=== PATIENT | male | born 1965 | race Caucasian/White ===

== ENCOUNTER 2020-05-20 16:17 | Emergency (ER) | payer MEDICARE, OTHER ==
[~2020-05-20 16:17] MED LIST: BENTYL 20MG TAB20 MG PO; TESSALON PERLE100 MG PO
[2020-05-20 17:37] LABS: HEMOGLOBIN 17.3 gm/dl (14.0-17.5); RED BLOOD COUNT 5.62 M/UL (4.20-5.50); WHITE BLOOD COUNT 9.2 K/UL (4.5-11.0)
[2020-05-20 17:56] LABS: BUN/CREATININE RATIO 20 (0-10)
== END 2020-05-20 19:20 | disposition home or self-care (01) ==
LOC: ER1 16:17
PROVIDERS: Emergency Medicine
DX: R50.9 Fever, unspecified (principal); I10 Essential (primary) hypertension; Z20.822 Contact with and (suspected) exposure to COVID-19
CPT/HCPCS: 71045; 80053; 82550; 82553; 83605; 83690; 83735; 83874; 84100; 84439; 84443; 84484; 85025; 85610; 85730; 87040; 93005; 99284; J7030; U0002

== ENCOUNTER 2020-09-21 15:20 | Emergency (ER) | payer MEDICARE, OTHER ==
[2020-09-21 19:52] LABS: HEMOGLOBIN 16.9 gm/dl (14.0-17.5); RED BLOOD COUNT 5.52 M/UL (4.20-5.50); WHITE BLOOD COUNT 7.9 K/UL (4.5-11.0)
[2020-09-21 20:06] LABS: BUN/CREATININE RATIO 16 (0-10)
== END 2020-09-21 21:35 | disposition home or self-care (01) ==
LOC: ER1 15:20
PROVIDERS: Emergency Medicine
DX: Z04.3 Encounter for examination and observation following other accident (principal)
CPT/HCPCS: 70450; 73130; 80053; 85025; 93005; 99284

== ENCOUNTER 2021-01-31 16:17 | Emergency (ER) | payer MEDICARE, OTHER ==
[2021-01-31 18:39] LABS: BUN/CREATININE RATIO 16 (0-10)
[2021-01-31 19:06] LABS: HEMOGLOBIN 16.5 gm/dl (14.0-17.5); RED BLOOD COUNT 5.32 M/UL (4.20-5.50); WHITE BLOOD COUNT 8.7 K/UL (4.5-11.0)
== END 2021-01-31 23:23 | disposition home or self-care (01) ==
LOC: ER1 16:17
PROVIDERS: Physician Assistant Medical
DX: R07.89 Other chest pain (principal); Z20.822 Contact with and (suspected) exposure to COVID-19; E78.5 Hyperlipidemia, unspecified; I10 Essential (primary) hypertension
CPT/HCPCS: 36415; 71045; 71046; 80053; 81001; 82550; 82553; 83690; 83874; 84484; 85025; 85379; 93005; 99285; U0002